=== PATIENT | male | born 1985 | race Caucasian/White ===

== ENCOUNTER 2016-06-21 18:45 | Emergency (ER) | payer OTHER ==
[2016-06-21 18:48] VITALS: BP 140/97; PULSE 89; RESP 18; TEMP 97.3
--- NOTE | 2016-06-21 19:25 | ED ---
General Adult HPI - General Chief complaint: Skin/Abscess/Foreign Body Stated complaint: infected tattoo Time Seen by Provider: 06/21/16 18:59 Source: patient, RN notes reviewed Mode of arrival: ambulatory Limitations: no limitations - History of Present Illness Initial comments: This is a 30-year-old male who presents with drainage, itching and redness surrounding a new tattoo. Patient states he got a tattoo over the weekend and noticed the redness and drainage 2 days later. Patient denies any pain, fever/ chills, numbness/tingling or weakness to the patient's left upper extremity. Patient states a clean needle was used. Patient has never had a reaction to a tattoo before. Patient states the rash is somewhat itchy.Patient denies any recent fever, chills, shortness breath, chest pain, abdominal pain, nausea/ vomiting/diarrhea, back pain, hematuria, headache, or visual changes, or any other complaints. - Related Data Previous Rx's Medication Instructions Recorded Cephalexin [Keflex] 500 mg PO Q12HR 7 Days 06/21/16 Allergies Allergy/AdvReac Type Severity Reaction Status Date / Time No Known Allergies Allergy Verified 06/21/16 19:00 Review of Systems ROS Statement: Those systems with pertinent positive or pertinent negative responses have been documented in the HPI. ROS Other: All systems not noted in ROS Statement are negative. Past Medical History Past Medical History: No Reported History History of Any Multi-Drug Resistant Organisms: None Reported Additional Past Surgical History / Comment(s): cyst removed from side of neck Past Psychological History: No Psychological Hx Reported Smoking Status: Current every day smoker Past Alcohol Use History: None Reported, Occasional Past Drug Use History: None Reported General Exam - General Exam Comments Initial Comments: General: The patient is awake and alert, in no distress, and does not appear acutely ill. Neck: The neck is supple, there is no tenderness or JVD. Cardiovascular: There is a regular rate and rhythm. No murmur, rub or gallop is appreciated. Respiratory: Lungs are clear to auscultation, respirations are non-labored, breath sounds are equal. No wheezes, stridor, rales, or rhonchi. Musculoskeletal: No tenderness to palpation, strength 5/5 and Sensation intact. Radial pulses 2+ bilaterally. Neurological: A&O x 3. CN II-XII intact, There are no obvious motor or sensory deficits. Coordination appears grossly intact. Speech is normal. Skin: There are multiple scabs over the patient's tattooed skin with mild surrounding erythema and dryness of the skin. The areas are not tender. Skin is warm and dry. Psychiatric: Normal mood and affect. Limitations: no limitations Course Vital Signs 06/21/16 18:45 Temperature 97.3 F L Pulse Rate 89 Respiratory 18 Rate Blood Pressure 140/97 O2 Sat by Pulse 98 Oximetry Medical Decision Making - Medical Decision Making This is a 30-year-old male presents with a reaction to tattoo he got over the weekend. On physical exam patient is afebrile in the EC. There are multiple scabs over the patient's tattooed skin with mild surrounding erythema and dryness of the skin. The areas are not tender. Skin is warm and dry. I discussed that patient was put on a course of Keflex. I discussed over-the- counter Benadryl if patient needed for itching. I discussed that patient should put Neosporin over the wounds. I discussed return parameters. Discussed that patient should follow-up with his primary care provider in the next 1-2 days or return to the [facility] for any worsening symptoms or for any further concerns. Patient was receptive to this plan and patient will be discharged home. Disposition Clinical Impression: Skin infection, History of tattoo Disposition: HOME SELF-CARE Condition: Good Instructions: Cellulitis (ED) Additional Instructions: Please finish entire course of antibiotics. Please apply Neosporin to the tattoo. May use [id number] Benadryl if needed for itchiness. Please follow-up with her primary care provider in one to 2 days or return to the EC for any worsening symptoms or for any further concerns. Prescriptions: Cephalexin [Keflex] 500 mg PO Q12HR 7 Days Referrals: Luciano Horan MD [Primary Care Provider] - 1-2 days Time of Disposition: 19:25
== END 2016-06-21 19:39 | disposition home or self-care (01) ==
LOC: EC 18:45
DX: L03.90 Cellulitis, unspecified (principal); F17.200 Nicotine dependence, unspecified, uncomplicated
CPT/HCPCS: 99282

== ENCOUNTER 2017-05-15 23:49 | Emergency (ER) | payer OTHER ==
[2017-05-16 00:11] VITALS: BP 129/69; PULSE 95; RESP 20; TEMP 97.2
[2017-05-16 00:44] LABS: Glucose,Whole Blood 107 mg/dL (75-99)
--- NOTE | 2017-05-16 00:49 | ED ---
General Adult HPI - General Chief complaint: Neuro Symptoms/Deficit Stated complaint: Loss of feeling in toes Time Seen by Provider: 05/16/17 00:21 Source: patient Mode of arrival: ambulatory Limitations: no limitations - History of Present Illness Initial comments: 31-year-old male patient presented to the emergency department today for complaints of tingling to all of his toes on both feet. Patient states that he has had this going on constantly for the last month. Patient states he has not been evaluated for this before. He denies any known medical history. Denies any numbness or tingling to the feet or legs. Denies any low back pain. Denies any loss of bowel or bladder control. 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 He denies any excessive thirst, sweats, excessive hunger, or polyuria. Patient denies any recent rash, fever, chills, shortness breath, chest pain, abdominal pain, nausea, vomiting, diarrhea, constipation, numbness, weakness, hematuria, dysuria, urinary urgency, urinary frequency, headache, visual changes, or any other complaints. - Related Data Home Medications Medication Instructions Recorded Confirmed No Known Home Medications [No 05/16/17 05/16/17 Known Home Medications] Allergies Allergy/AdvReac Type Severity Reaction Status Date / Time No Known Allergies Allergy Verified 05/16/17 00:11 Review of Systems ROS Statement: Those systems with pertinent positive or pertinent negative responses have been documented in the HPI. ROS Other: All systems not noted in ROS Statement are negative. Past Medical History Past Medical History: No Reported History History of Any Multi-Drug Resistant Organisms: None Reported Additional Past Surgical History / Comment(s): cyst removed from side of neck Past Psychological History: No Psychological Hx Reported Smoking Status: Current every day smoker Past Alcohol Use History: Occasional Past Drug Use History: None Reported General Exam Limitations: no limitations General appearance: alert, in no apparent distress, other (This is a well- developed, well-nourished adult male patient in no acute distress. Vital signs upon presentation are temperature 97.2F, pulse 95, respirations 20, blood pressure 129/69, pulse ox 100% on room air.) Eye exam: Present: normal appearance, PERRL, EOMI. Absent: scleral icterus, conjunctival injection, periorbital swelling ENT exam: Present: normal exam, normal oropharynx, mucous membranes moist Respiratory exam: Present: normal lung sounds bilaterally. Absent: respiratory distress, wheezes, rales, rhonchi, stridor Cardiovascular Exam: Present: regular rate, normal rhythm, normal heart sounds. Absent: systolic murmur, diastolic murmur, rubs, gallop, clicks GI/Abdominal exam: Present: soft, normal bowel sounds. Absent: distended, tenderness, guarding, rebound, rigid Extremities exam: Present: normal inspection, full ROM, normal capillary refill , other (Skin to the lower extremities and feet is pink, warm, and dry. Cap refills less than 3 seconds. Pedal and posttibial pulses are 2+ and equal bilaterally. Cap refill to all toes is less than 3 seconds.). Absent: tenderness, pedal edema, joint swelling, calf tenderness Neurological exam: Present: alert, oriented X3, CN II-XII intact Psychiatric exam: Present: normal affect, normal mood Skin exam: Present: warm, dry, intact, normal color. Absent: rash Course Vital Signs 05/16/17 00:05 Temperature 97.2 F L Pulse Rate 95 Respiratory 20 Rate Blood Pressure 129/69 O2 Sat by Pulse 100 Oximetry Medical Decision Making - Medical Decision Making 31-year-old male patient presented to the emergency department tonight for evaluation of tingling, pins and needle sensation to all of his toes. Symptoms have been present for 1 month. Blood sugar was 109. I did discuss need for follow-up with neurology with the patient. He is instructed to return here immediately for any new, worsening, or concerning symptoms. He verbalizes understanding and agrees with this plan. - Lab Data Lab Results 05/16/17 Range/Units 00:41 POC Glucose (mg/dL) 107 H (75-99) mg/dL POC Glu Multimedia Editor ID Sammi Munoz Disposition Clinical Impression: Neuropathy Disposition: HOME SELF-CARE Condition: Good Instructions: Peripheral Neuropathy (ED) Additional Instructions: Follow-up with neurology as soon as possible. Return here immediately for any new, worsening, or concerning symptoms. Referrals: None,Stated [Primary Care Provider] - 1-2 days Juana Oliveira MD [STAFF PHYSICIAN] - 1-2 days Time of Disposition: 00:49
== END 2017-05-16 00:54 | disposition home or self-care (01) ==
LOC: EC 23:49
DX: G62.9 Polyneuropathy, unspecified (principal); F17.200 Nicotine dependence, unspecified, uncomplicated
CPT/HCPCS: 36415; 99284

== ENCOUNTER 2017-05-23 02:01 | Emergency (ER) | payer OTHER ==
[2017-05-23 02:09] VITALS: RESP 16
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
[2017-05-23 03:46] VITALS: BP 159/89; PULSE 92; TEMP 98.7
== END 2017-05-23 03:25 | disposition home or self-care (01) ==
LOC: EC 02:01
DX: R41.0 Disorientation, unspecified (principal); F17.200 Nicotine dependence, unspecified, uncomplicated
CPT/HCPCS: 82075; 99284